=== PATIENT | female | born 1940 | race Native Hawaiian/Other Pacific Islander ===

== ENCOUNTER 2018-11-21 15:33 | Emergency (ER) | payer OTHER ==
[~2018-11-21] VITALS: Ht 157.5 cm; Wt 79.4 kg
[2018-11-21] MEDS ORDERED: ARIPIPRAZOLE OD10 MG PO (15:40)
[2018-11-21] MEDS ORDERED: ABILIFY20 MG PO (15:41)
[2018-11-21] MEDS ORDERED: ARIPIPRAZOLE30 MG PO (15:42)
[2018-11-21] MEDS ORDERED: VITAMIN DE1000 MCG/M IM (15:44)
[2018-11-21] MEDS ORDERED: LAMICTAL150 MG PO (15:45)
[2018-11-21] MEDS ORDERED: DIVALPROEX125 MG PO (15:45)
[2018-11-21] MEDS ORDERED: TUMS500 MG PO (15:46)
[2018-11-21] MEDS ORDERED: PANTOPRAZOLE SO40 M1 PO (15:46)
[2018-11-21] MEDS ORDERED: SERT50TA PO (15:47)
[2018-11-21 16:20] LABS: PLATELET COUNT 154 K/uL (152-353)
[2018-11-21 18:57] VITALS: BP 160/89; TEMP 97.5
[2018-11-21] MEDS ORDERED: FUROSEMIDE20 MG PO (19:49)
[2018-11-21] MEDS ORDERED: HALO5INJ3 IM (19:50)
[2018-11-21] MEDS ORDERED: KLOR-CON SPRIN10 MEQ PO (19:51)
== END 2018-11-21 18:55 | disposition other institution (70) ==
LOC: ED 15:33
PROVIDERS: Emergency Medicine
DX: F31.2 Bipolar disorder, current episode manic severe with psychotic features (principal); F03.91 Unspecified dementia, unspecified severity, with behavioral disturbance; I10 Essential (primary) hypertension; Z04.6 Encounter for general psychiatric examination, requested by authority
CPT/HCPCS: 36415; 80053; 81000; 85027; 93005; 99285